=== PATIENT | female | born 1995 | race Caucasian/White ===

== ENCOUNTER 2024-07-20 16:17 | Outpatient (CLI) | payer BC, SELFPAY ==
[2024-07-20 16:43] VITALS: BP 117/58; PULSE 100
[2024-07-20 16:46] VITALS: RESP 13; TEMP 36.4; O2SAT 98
[2024-07-20 16:55] VITALS: BMI 32.8
[2024-07-20 17:10] LABS: Color, Urine Straw (Yellow); Glucose, Dipstick Normal (Normal); Ketone-Dipstick Negative (Negative); Leukocyte Esterase-Dipstick Negative /ul (Negative); Nitrite-Dipstick Negative (Negative); Occult Blood-Urine Negative /ul (Negative); Protein-Dipstick Negative (Negative); Specific Gravity, Urine 1.005 (1.002-1.030); Urine Bilirubin Dipstick Negative (Negative); Urine Clarity Clear (Clear); Urine Urobilinogen Normal (Normal); Urine pH 6.5 (5.0 - 8.0)
--- NOTE | 2024-07-20 20:48 | OB.TRI.NOTE ---
HPI - General General Date of Admission: 07/20/24 Date of Service: 07/20/24 Chief Complaint: cramping HPI Narrative SCOOBY MARCUM, is a 29 F who presents with abdominal cramping No bleeding no LOF Maternal Data Information Final SUZE: 10/10/24 Gestational age: 28+2 PFSH History 2 Elective abortions Hx Para 1 Spontaneous abortions Hx # Term Pregnancies Ectopic pregnancies Hx # Pregnancies Multiple births # of living children NST FHR Rate Baby A Baseline: 130 Variability:: Moderate Accelerations:: 15 x 15 Decelerations:: None NST Reactive:: Yes Uterine Activity:: quiet Assessment & Plan (1) 28 weeks gestation of : (2) Abdominal cramping affecting : PLAN: Plan No contractions urine normal Discharge home to follow up outpatient
== END 2024-07-20 17:40 | disposition home or self-care (01) ==
LOC: WPOUT 16:31 → WP 16:32
PROVIDERS: PCP Physician Assistant Medical; Referring Provider Obstetrics & Gynecology; Visit Provider Obstetrics & Gynecology
DX: O99.891 Other specified diseases and conditions complicating pregnancy (principal); R10.9 Unspecified abdominal pain; Z3A.28 28 weeks gestation of pregnancy
CPT/HCPCS: 59025; 59050; 81002; 99221; G0378